=== PATIENT | female | born 1990 | race Caucasian/White ===

== ENCOUNTER 2016-07-29 21:38 | Emergency (ER) | payer OTHER ==
[2016-07-29 21:54] VITALS: BP 133/87; PULSE 72; RESP 16; O2SAT 98
[2016-07-29] MEDS ORDERED: ACYCLOVIR 400 MG PREPACK#4 BTL TAKEHOME ONE (22:09)
--- NOTE | 2016-07-29 22:09 | UCPHY ---
H & P Time Seen by Provider: 07/29/16 21:58 Patient Type: New HPI/ROS: 25-year-old female presents complaining of rash to her left groin area as well as hypersensitivity of her skin in her left lower quadrant this is been present for approximately 2-3 days No fevers or chills Review of systems General no fever no chills no weakness HEENT no eye pain no eye discharge. No eye redness, no sore throat Respiratory no cough, no shortness of breath Cardiac no chest pain, no peripheral edema GI no abdominal pain, no diarrhea, no constipation, no nausea, no vomiting no flank pain, no hematuria, no dysuria Musculoskeletal no myalgias, no joint pain Heme no easy bruising, no easy bleeding Endo no polyuria, no polydipsia Skin positive rashes, no pruritus Neuro no syncope, no dizziness, no headaches Psych is no suicidal ideation, no homicidal ideation Past Medical/Surgical History: Noncontributory Social History: Sexually active with 1 partner x2 years no prior STDs Smoking Status: Never smoked Physical Exam: 25-year-old female alert and oriented no acute distress nontoxic appearing Alert and oriented in no acute distress nontoxic appearance, afebrile Atraumatic normocephalic Neck no JVD Lungs clear to auscultation, no respiratory distress Heart regular rate and rhythm Extremities no cyanosis clubbing edema Skin Fascicular rash left mons left inguinal area Skin hypersensitive in left lower quadrant left hip Constitutional: Initial Vital Signs Heart Rate 72 07/29/16 21:51 Respiratory Rate 16 07/29/16 21:51 Blood Pressure 133/87 H 07/29/16 21:51 O2 Sat (%) 98 07/29/16 21:51 O2 Delivery Mode Room Air Allergies/Adverse Reactions: No Known Allergies Allergy (Unverified 07/29/16 21:50) Home Medications: Medication Instructions Recorded Acyclovir 800 mg PO 5XD #35 tab 07/29/16 Medical Decision Making ED Course/Re-evaluation: Patient seen and evaluated for rash Rash does not cross midline appears to be in 1 dermatome is vesicular Impression Shingles Plan Acyclovir 800 5 times a day x7 days Follow-up PCP - Data Points Medications Given: Discontinued Medications Acyclovir (Zovirax 400 Mg Prepack #4) 1 btl TAKEHOME EDNOW ONE Stop: 07/29/16 22:10 Last Admin: 07/29/16 22:22 Dose: 1 btl Departure - Departure Disposition: Home, Routine, Self-Care Clinical Impression: Shingles Condition: Good Instructions: Shingles (ED) Referrals: NONE *PRIMARY CARE P,. [Primary Care Provider] - As per Instructions [facility] [Provider Group] - As per Instructions Prescriptions: Acyclovir 800 mg PO 5XD #35 tab - PQRS PQRS Measurement: na
== END 2016-07-29 22:24 | disposition home or self-care (01) ==
LOC: CED 21:38
DX: B02.9 Zoster without complications (principal)
CPT/HCPCS: 99203-PO; G0463-PO